=== PATIENT | female | born 1970 | race Caucasian/White ===

== ENCOUNTER 2019-01-12 10:17 | Outpatient (CLI) | payer OTHER, SELFPAY ==
[2019-01-12 12:29] LABS: TSH (W/Ref FT4) 1.93 uIU/mL (0.358-3.74)
[2019-01-13 11:09] LABS: FSH 54.6 mIU/ml; LH 22.9 mIU/ml
== END 2019-01-12 10:37 ==
PROVIDERS: PCP Nurse Practitioner Family; Visit Provider Nurse Practitioner Family
DX: Z00.00 Encounter for general adult medical examination without abnormal findings (principal); E03.9 Hypothyroidism, unspecified; Z78.0 Asymptomatic menopausal state
CPT/HCPCS: 36415; 83001; 83002; 84443

== ENCOUNTER 2019-06-28 00:53 | Outpatient (CLI) | payer OTHER, SELFPAY ==
--- NOTE | 2019-06-28 10:30 | DI.MAMMO_ITS ---
EXAM: MAMMO SCREENING CLINICAL HISTORY: SCREENING Z12.39. TECHNIQUE: Mammograms were interpreted according to the usual protocol including computer analysis w [employer] CAD system, tomosynthesis and C-view imaging. FINDINGS: The breasts are heterogeneously dense. No dominant mass or clumped microcalcification identified in either breast. Current examination is compared with previous examinations including September 2016 and there is question increased prominence of a focal area of vaguely nodular asymmetric density of the lateral central portion of left breast seen on CC view. Additional mammographic views of this area a re requested to include CC spot compression view. No other significant change seen. IMPRESSION: Additional mammographic views of the left breast requested as described above. Breast ultrasound may be indicated as well depending on the results of the additional mammographic views. Category 0. [address] density, category C. BI-RADS Cat 0 - Assessment Incomplete: Need additional imaging evaluation. Breast Density - Category C - Heterogeneously dense.
== END 2019-06-28 01:13 ==
PROVIDERS: PCP Nurse Practitioner Family; Visit Provider Nurse Practitioner Family
DX: Z12.31 Encounter for screening mammogram for malignant neoplasm of breast (principal); R92.8 Other abnormal and inconclusive findings on diagnostic imaging of breast
CPT/HCPCS: 77063; 77067

== ENCOUNTER 2019-07-14 01:14 | Outpatient (CLI) | payer OTHER, SELFPAY ==
--- NOTE | 2019-07-14 09:00 | DI.US_ITS ---
EXAM: Mammogram callback and ultrasound CLINICAL HISTORY: INCREASED PROMINENCE OF FOCAL AREA OF VAGUELY NODULAR ASYMMETRIC DENSITY TECHNIQUE: Mammograms were interpreted according to the usual protocol including computer analysis w ith CAD system, tomosynthesis and C-view imaging and left breast ultrasound. COMPARISON: Available for comparison. FINDINGS: Mammogram callback Additional views of the left breast fail to show a persistent discrete mass. No suspicious microcalci fications are present. Breast Density - Category C - Heterogeneously dense Left breast ultrasound The upper outer and lower outer quadrants of the left breast were evaluated sonographically. No susp icious cystic or solid masses are present. Unremarkable ducts are seen in the left breast. IMPRESSION: No evidence for malignancy. A 6 month follow-up left mammogram is requested for re-evaluation. BI-RADS Cat 3 - 6 month - Probably Benign Finding: Recommend follow-up mammography in 6 months Breast Density - Category C - Heterogeneously dense.
== END 2019-07-14 01:34 ==
PROVIDERS: PCP Nurse Practitioner Family; Visit Provider Nurse Practitioner Family
DX: Z12.31 Encounter for screening mammogram for malignant neoplasm of breast (principal); R92.8 Other abnormal and inconclusive findings on diagnostic imaging of breast; N64.59 Other signs and symptoms in breast
CPT/HCPCS: 76642; 77063; 77067

== ENCOUNTER 2020-01-20 01:49 | Outpatient (CLI) | payer OTHER, SELFPAY ==
--- NOTE | 2020-01-20 10:50 | DI.MAMMO_ITS ---
EXAM: MG MAMMO DIAGNOSTIC UNI left CLINICAL HISTORY: F/U ABNL MAMMO, 6 MO F/U, R92.8,NODULAR ASYMMETRIC DENSITY TECHNIQUE: Mammograms were interpreted according to the usual protocol including computer analysis w [employer] CAD system, tomosynthesis and 2D or C-view imaging. COMPARISON: 2013 through 2019. FINDINGS: This is a six-month follow-up of the left breast for lateral asymmetric density. The left breast is composed of heterogeneously dense fibroglandular tissue, breast density category C . There is a stable area of nodularity upper outer quadrant of left breast which appears unchanged wh en compared with exams back to 2014. No new or suspicious findings are seen. IMPRESSION: BI-RADS Category 2 - Benign Findings bilateral screening should be resumed in 6 months. Breast Density - Category C - Heterogeneously dense The patient will receive a letter notifying them of these results.
== END 2020-01-20 02:09 ==
PROVIDERS: PCP Nurse Practitioner Family; Visit Provider Nurse Practitioner Family
DX: Z12.31 Encounter for screening mammogram for malignant neoplasm of breast (principal); R92.8 Other abnormal and inconclusive findings on diagnostic imaging of breast; N63.21 Unspecified lump in the left breast, upper outer quadrant
CPT/HCPCS: 77061; 77065; G0279

== ENCOUNTER 2020-01-28 12:43 | Outpatient (REF) | payer OTHER, SELFPAY ==
[2020-01-28 18:52] LABS: HCT 40.4 % (36.0-46.0); HGB 13.3 g/dL (12.0-15.5); Mean Corp. HGB Concentration 32.9 g/dL (32.0-36.0); Mean Corpuscular Volume 94.2 fL (80-95); Mean Platelet Volume 9.4 fL (8.0-11.0); Platelet Count 353 x1000/uL (130-400); RBC 4.29 m/cumm (4.00-5.20); RBC Distribution Width 12.9 % (11.7-14.6); White Blood Cell Count 6.81 k/cumm (4.4-10.8)
[2020-01-28 18:58] LABS: TSH (W/Ref FT4) 1.28 uIU/mL (0.36-3.74)
== END 2020-01-28 13:03 ==
LOC: NCHCN 12:43
PROVIDERS: PCP Nurse Practitioner Family; Visit Provider Nurse Practitioner Family
DX: E03.9 Hypothyroidism, unspecified (principal); Z00.00 Encounter for general adult medical examination without abnormal findings
CPT/HCPCS: 85027; 84443

== ENCOUNTER 2020-06-24 10:37 | Outpatient (REF) | payer OTHER, SELFPAY ==
[2020-06-24 12:14] LABS: WBC 0-2 HPF (0-5)
[2020-06-24 12:15] LABS: Epithelial Cells Rare HPF (Negative); RBC 0-2 HPF (0-2)
[2020-06-24 12:16] LABS: Bacteria Negative HPF (Negative); C & S Indicated? No; Crystals Negative HPF (Negative); Mucus Trace (Negative)
== END 2020-06-24 10:57 ==
LOC: LBN 10:37
PROVIDERS: PCP Nurse Practitioner Family; Visit Provider Family Medicine
DX: R31.9 Hematuria, unspecified (principal)
CPT/HCPCS: 81015

== ENCOUNTER 2020-07-20 00:46 | Outpatient (CLI) | payer OTHER, SELFPAY ==
--- NOTE | 2020-07-20 06:00 | DI.US_ITS ---
EXAM: US PELVIS TRANSVAGINAL CLINICAL HISTORY: postmenopausal bleeding,n95.0. TECHNIQUE: Transabdominal and transvaginal pelvic ultrasound was performed using standard protocol. COMPARISON: No exams were available for comparison FINDINGS: KIDNEYS: Kidneys are symmetric in size. No evidence of renal calculi. No evidence of hydronephrosis. No renal mass or cyst identified. UTERUS: Position: Anteverted. Size: 7.2 long by 3.9 AP by 5.1 transverse cm Endometrium: 0.2 cm. Normal for patient's menstrual status. Myometrium: 0.9 x 0.6 x 0.8 cm hypoechoic round mass suggests deep to the fundal endometrium. This m ay represent a small fibroid. Cervix: Unremarkable. OVARIES: Right: 3.1 x 1.6 x 2 cm Cyst or mass: None. Left: 2.8 x 1.5 x 1.9 cm Cyst or mass: None. DOPPLER: Color: Symmetric and uniform flow to both ovaries. No hyperemia. Duplex: Normal ovarian arterial waveforms visualized. CUL-DE-SAC: Free fluid: None. Other: None. IMPRESSION: 1. Normal sonographic appearance of the kidneys. 2. Normal endometrial stripe. 3. 0.9 cm hypoechoic nodule in the uterus likely reflecting a fibroid. 4. Unremarkable bilateral ovaries. DATA REPOSITORY:
== END 2020-07-20 01:06 ==
PROVIDERS: PCP Nurse Practitioner Family; Visit Provider Nurse Practitioner Women's Health
DX: N95.0 Postmenopausal bleeding (principal)
CPT/HCPCS: 76830; 76856

== ENCOUNTER 2020-07-21 04:22 | Outpatient (CLI) | payer OTHER, SELFPAY ==
--- NOTE | 2020-07-21 15:15 | DI.MAMMO_ITS ---
EXAM: MAMMO SCREENING CLINICAL HISTORY: SCREENING,Z12.39 TECHNIQUE: Mammograms were interpreted according to the usual protocol including computer analysis w [employer] CAD system, tomosynthesis and C-view imaging. COMPARISON: FINDINGS: The breasts are heterogeneously dense. No dominant mass or clumped microcalcification is identified in either breast. The current examination is compared with prior studies including January 2020 and is a question of interval increase in prominence of a focal area of asymmetric density projected in the c entral lateral portion of the right breast on CC view. Focal increased radiodensity may also be pres ent in the central superior portion of right breast on MLO view. Spot compression views of the right breast are requested for further evaluation. Right breast ultrasound may also be indicated. No other significant change. IMPRESSION: Additional mammographic views of the right breast and right breast ultrasound recommended as descri bed above. BI-RADS Category 0 - Assessment Incomplete: Need additional imaging evaluation DensityBreast Density - Category C - Heterogeneously dense
== END 2020-07-21 04:42 ==
PROVIDERS: PCP Nurse Practitioner Family; Visit Provider Nurse Practitioner Family
DX: Z12.31 Encounter for screening mammogram for malignant neoplasm of breast (principal); R92.8 Other abnormal and inconclusive findings on diagnostic imaging of breast
CPT/HCPCS: 77063; 77067

== ENCOUNTER → 2020-07-26 01:53 | Outpatient (CLI) | payer OTHER, SELFPAY ==
--- NOTE | 2020-07-26 | DI.US_ITS ---
EXAM: MG MAMMO SCREEN CALL BACK UNI and U/S breast RT limited CLINICAL HISTORY: F/U MAMMO, ? INCREASE IN ASYMMETRIC DENSITY MARQUISE LAT PORT CC VIEW AND CENT. TECHNIQUE: Craniocaudal and mediolateral oblique Full Field Digital Mammography views of the right b reast with Computer Aided Diagnosis followed by Tomosynthesis and right breast ultrasound. COMPARISON: Previous available for comparison. FINDINGS: Mammography/Tomosynthesis: Masses/Architectural Distortion: None seen. Microcalcifictions: No suspicious pleomorphic-type are seen. Skin Thickening/Nipple Retraction: None. Right breast US: Echotexture: Normal appearance of the glandular tissue. Shadowing: No suspicious foci. Cyst: There is a cluster of cysts at the 8 o'clock position of the right breast 2 cm from the nipple. The largest measures 0.6 cm. Solid lesions: None seen. Ductal dilation: None. IMPRESSION: 1. No evidence of malignancy is noted. 2. A six-month follow-up mammogram is recommended for re-evaluation. 3. The findings were discussed with the patient on the date of the examination. BI-RADS Category 3 - 6 month - Probably Benign Finding: Recommend follow-up mammography in 6 months Breast Density - Category C - Heterogeneously dense The mammogram demonstrates the patient's breast tissue is dense. Dense breast tissue is very common a nd is not abnormal but dense breast tissue can make it harder to find cancer on a mammogram. Also, de nse breast tissue may increase their breast cancer risk. This information about the result of the [facility] mogram report was provided to the patient to raise their awareness. Use this report when you speak wi th the patient about their risks for breast cancer, which includes their family history. At that time , you may recommend for more screening tests (Ultrasound or MRI) as they might be useful based on the ir risk. A negative radiographic report should not delay biopsy if a dominant or clinically suspicious mass is present. Up to ten percent of cancers are not identified on mammography. A negative report may reinforce clinical impression. Adenosis and dense breasts may obscure an underlying neoplasm. False positive reports average 6 to 10%. Patient will receive a letter notifying them of these results.
== END ==
PROVIDERS: PCP Nurse Practitioner Family; Visit Provider Nurse Practitioner Family
DX: R92.8 Other abnormal and inconclusive findings on diagnostic imaging of breast (principal); N60.01 Solitary cyst of right breast
CPT/HCPCS: 76642; 77063; 77067

== ENCOUNTER 2021-03-23 11:20 | Outpatient (REF) | payer OTHER, SELFPAY ==
[2021-03-23 16:04] LABS: Hemoglobin A1C 6.1 % (<5.7)
== END 2021-03-23 11:21 | disposition home or self-care (01) ==
LOC: NCHCN 11:20
PROVIDERS: PCP Nurse Practitioner Family; Visit Provider Nurse Practitioner Family
DX: E03.9 Hypothyroidism, unspecified (principal); R73.9 Hyperglycemia, unspecified
CPT/HCPCS: 83036; 84443

== ENCOUNTER 2021-07-24 01:07 | Outpatient (CLI) | payer OTHER, SELFPAY ==
--- NOTE | 2021-07-24 12:23 | DI.MAMMO_ITS ---
Exam(s) MAMMO SCREENING EXAM: MAMMO SCREENING CLINICAL HISTORY: SCREENING, Z12.39 TECHNIQUE: Bilateral full field digital CC and MLO mammographic images were obtained with 3D tomosyn thesis and utilizing computer aided detection (CAD). COMPARISON: Available for comparison. FINDINGS: Masses/Architectural Distortion: None seen. The focal asymmetry in the outer left breast on the CC vi ew appears stable compared to prior examinations. Microcalcifications: No suspicious pleomorphic-type are seen. Skin Thickening/Nipple Retraction: None. IMPRESSION: 1. No significant interval change with no specific features of malignancy noted. 2. Unless there is more urgent need, screening mammography is recommended, as per [employer] guidelines. BI-RADS Category 1 - Negative Breast Density - Category C - Heterogeneously dense Breast density category C or D implies that the patient has dense breast tissue. Dense breast tissue is very common and is not abnormal but dense breast tissue can make it harder to find cancer on a ma mmogram. Also, dense breast tissue may increase their breast cancer risk. This information about the result of the mammogram report was provided to the patient to raise their awareness. Use this report when you speak with the patient about their risks for breast cancer, which includes their family hist ory. At that time, you may recommend for more screening tests (Ultrasound or MRI) as they might be us eful based on their risk. A negative radiographic report should not delay biopsy if a dominant or clinically suspicious mass is present. Up to ten percent of cancers are not identified on mammography. A negative report may reinforce clinical impression. Adenosis and dense breasts may obscure an underlying neoplasm. False positive reports average 6 to 10%. Patient will receive a letter notifying them of these results.
== END 2021-07-24 01:27 ==
PROVIDERS: PCP Nurse Practitioner Family; Visit Provider Nurse Practitioner Family
DX: Z12.31 Encounter for screening mammogram for malignant neoplasm of breast (principal)
CPT/HCPCS: 77063; 77067

== ENCOUNTER 2021-10-16 10:17 | Outpatient (REF) | payer OTHER, SELFPAY ==
--- NOTE | 2021-10-16 09:00 | ENDOMET_PTH ---
PATIENT: Irina Pereira LOC: [facility]#:[id number] AGE/SX: 51/F ROOM: RE10/16/[address]: Almita Singer DO : 1970 BED: DIS: 10/16/2021 SPEC #: [id number] RECD: 10/16/21 12:43 STATUS: SOUT REQ #: [id number] KAYODE: 10/16/21 09:[address]: Almita Singer DEPT: Surgical Specimen RECD BY: María Flores ENTERED: 10/16/21 12:44 SP TYPE: Endomet OTHR DR: Elyse Hussein Tissues: 1 - ENDOMETRIUM BX/AILEEN Procedures: GROSS AND MICRO LEVEL 4 Comments: [id number]
== END 2021-10-16 10:18 | disposition home or self-care (01) ==
LOC: LBN 10:17
PROVIDERS: PCP Nurse Practitioner Family; Visit Provider Obstetrics & Gynecology
DX: N95.0 Postmenopausal bleeding (principal)
CPT/HCPCS: 88305

== ENCOUNTER 2022-10-18 16:05 | Outpatient (REF) | payer OTHER, SELFPAY ==
--- NOTE | 2022-10-18 15:30 | PAPFT_PTH ---
PATIENT: Irina Pereira LOC: [facility]#:[id number] AGE/SX: 52/F ROOM: RE10/18/[address]: Elyse Hussein : 1970 BED: DIS: 10/18/2022 SPEC #: [id number] RECD: 10/21/22 13:05 STATUS: SHERRIE REStephenie #: [id number] KAYODE: 10/18/22 15:[address]: Elyse Hussein DEPT: [facility] Cytology RECD BY: María Flores Tissues: 1 - CX/ENDOCX FOR PAP SMEARS Procedures: PAP THIN PREP/UVM Screening HPV DNA PROBE Comments: [id number]
== END 2022-10-18 16:06 | disposition home or self-care (01) ==
LOC: NCHCN 16:05
PROVIDERS: PCP Nurse Practitioner Family; Visit Provider Nurse Practitioner Family
DX: Z12.4 Encounter for screening for malignant neoplasm of cervix (principal); Z11.51 Encounter for screening for human papillomavirus (HPV)
CPT/HCPCS: 88142; 87624

== ENCOUNTER 2023-07-11 12:43 | Outpatient (CLI) | payer OTHER, SELFPAY ==
[2023-07-11 11:11] LABS: HCT 41.5 % (36.0-46.0); HGB 13.7 g/dL (11.2-15.7); MCH 30.9 pg (27.0-33.0); MCV 94 fL (80-95); MPV 8.4 fL (8.0-11.0); Platelet Count 308 10^3/uL (130-400); RBC 4.43 10^6/uL (3.93-5.22); RDW-SD 45.1 fL; WBC 5.68 10^3/uL (4.4-10.8)
[2023-07-11 11:50] LABS: Anion Gap 10.9 mmol/L (3-11); BUN 13 mg/dL (7-18); CO2 26.1 mmol/L (21.0-32.0); CREATININE 0.6 mg/dL (0.55-1.02); Calcium 9.9 mg/dL (8.5-10.1); Calculated LDL 153 mg/dL (<100); Chloride 105 mmol/L (98-107); Cholesterol 241 mg/dL (<200); Estimated GFR 105.94 (mL/min/1.73m2); Glucose 102 mg/dL (74-106); HDL Cholesterol 68 mg/dL (40-60); Potassium 4.3 mmol/L (3.5-5.1); Sodium 142 mmol/L (136-145); TSH (W/Ref FT4) 1.36 uIU/mL (0.36-3.74); Triglyceride 104 mg/dL (<150)
== END 2023-07-11 12:44 | disposition home or self-care (01) ==
LOC: LBO 12:45
PROVIDERS: PCP Nurse Practitioner Family; Visit Provider Nurse Practitioner Family
DX: R73.03 Prediabetes (principal); E03.9 Hypothyroidism, unspecified
CPT/HCPCS: 36415; 80048; 80061; 85027; 84443

== ENCOUNTER 2025-01-27 17:58 | Outpatient (REF) | payer OTHER, SELFPAY ==
[2025-01-27 16:56] LABS: COMMENT (LAB VIEW ONLY) 273.54 mg/dL; Microalb ug/mg Crea 19.7 ug/mg Cr
== END 2025-01-27 17:59 | disposition home or self-care (01) ==
LOC: NCHCN 17:58
PROVIDERS: Visit Provider Nurse Practitioner Family
DX: E11.9 Type 2 diabetes mellitus without complications (principal)
CPT/HCPCS: 82043; 82570